=== PATIENT | male | born 1990 | race Two or more races ===

== ENCOUNTER 2024-10-12 12:16 | Inpatient (IN) | payer MEDICAID ==
[~2024-10-12] VITALS: Ht 172.7 cm; Wt 99.1 kg
[2024-10-12] MEDS ORDERED: NAD PO (12:24)
[2024-10-12] MEDS ORDERED: OMEG300C3 (12:24)
[2024-10-12 12:45] LABS: BASOPHILS % (AUTO) 0.4 % (0.0-2.0); EOSINOPHILS # (AUTO) 0.2 K/uL (0.0-0.7); EOSINOPHILS % (AUTO) 1.6 % (0.0-7.0); HEMATOCRIT 43.4 % (36.7-47.1); LYMPHOCYTES # (AUTO) 2.8 K/uL (0.8-4.8); MEAN CORPUSCULAR HEMOGLOBIN 19.5 uug (23.8-33.4); MEAN CORPUSCULAR HGB CONC 32 g/dL (32.5-36.3); MEAN CORPUSCULAR VOLUME 60.6 fL (73.0-96.2); MONOCYTES # (AUTO) 0.7 K/uL (0.1-1.30); MONOCYTES % (AUTO) 6.7 % (0.0-11.0); NEUTROPHILS # (AUTO) 6.7 K/uL (1.8-8.9); NEUTROPHILS % (AUTO) 64.3 % (38.5-71.5); PLATELET COUNT (AUTO) 230 K/uL (152-348); RED CELL DISTRIBUTION WIDTH 15.9 % (12.1-16.2); WHITE BLOOD COUNT (AUTO) 10.4 K/uL (3.6-10.2)
[2024-10-12 12:49] LABS: DIFFERENTIAL COMMENT 1; RED BLOOD CELL COUNT(AUTO) 7.15 MIL/uL (4.06-5.63)
[2024-10-12] MEDS: IV NORMAL SALINE 1000 ML BAG IV ONE (12:50)
[2024-10-12 12:58] LABS: ALBUMIN 3.8 g/dL (3.4-5.0); BILIRUBIN,DIRECT 0.2 mg/dL (0.0-0.2); BILIRUBIN,TOTAL 0.9 mg/dL (0.2-1.0); CALCIUM 9.6 mg/dL (8.5-10.1); CREATININE 0.9 mg/dL (0.6-1.3); POTASSIUM 4.3 mmol/L (3.5-5.1); TOTAL PROTEIN, SERUM 7.6 g/dL (6.4-8.2)
[2024-10-12 13:16] LABS: *BILIRUBIN,URIN NEGATIVE (NEGATIVE); *BLOOD, URINE NEGATIVE (NEGATIVE); *CLARITY,URINE CLEAR (CLEAR); *COLOR,URINE YELLOW (YELLOW); *KETONES,URINE NEGATIVE (NEGATIVE); *PROTEIN,URINE NEGATIVE (NEGATIVE); *UROBILINOGEN,URINE 0.2 E.U./dl (NORMAL); LEUKOCYTE ESTERASE ,URINE NEGATIVE (NEGATIVE); NITRITE, URINE NEGATIVE (NEGATIVE); UGLUCOSE NEGATIVE (NEGATIVE)
[2024-10-12] MEDS ORDERED: IOHEXOL 300MG/ML 100 ML INFUS..BTL ONE (13:29)
[2024-10-12] MEDS ORDERED: SWABABLE VALVE TRANSFER SET EA MC ONE (13:29)
[2024-10-12] MEDS ORDERED: IV NORMAL SALINE 250 ML IV ONE (13:29)
[2024-10-12] MEDS ORDERED: ONDANSETRON 4 MG/2 ML VIAL ONE (15:11)
[2024-10-12] MEDS ORDERED: MORPHINE SULFATE 4 MG/1 ML DISP.SYRIN ONE (15:12)
[2024-10-12] MEDS: ONDANSETRON 4 MG/2 ML VIAL IV ONE (15:21)
[2024-10-12] MEDS: MORPHINE SULFATE 4 MG/1 ML DISP.SYRIN IV ONE (15:21)
[2024-10-12] MEDS ORDERED: ONDANSETRON 4 MG/2 ML VIAL IV PRN (16:45)
[2024-10-12] MEDS ORDERED: ACETAMINOPHEN 325 MG TABLET PO PRN (16:45)
[2024-10-12] MEDS ORDERED: hydrALAZINE HCL 20 MG/1 ML VIAL IV PRN (16:45)
[2024-10-12] MEDS ORDERED: OMEG1CAP74 PO (17:57)
[2024-10-12] MEDS: IV NS 1000 ML 1,000 ML IV SCH (19:05)
[2024-10-12] MEDS: MORPHINE SULFATE 2 MG/1 ML DISP.SYRIN IVP PRN (19:29)
[2024-10-12 23:49] VITALS: BP 121/68; TEMP 98.3; O2SAT 96
[2024-10-13 06:54] VITALS: BP 121/88; TEMP 98.4; O2SAT 99
[2024-10-13 08:00] VITALS: BP 106/59; TEMP 97.9; O2SAT 98
[2024-10-13 08:44] LABS: BASOPHILS # (AUTO) 0.1 K/UL (0.0-0.2); BASOPHILS % (AUTO) 0.5 % (0.0-2.0); DIFFERENTIAL COMMENT 0; EOSINOPHILS # (AUTO) 0.2 K/uL (0.0-0.7); EOSINOPHILS % (AUTO) 1.4 % (0.0-7.0); HEMATOCRIT 38.5 % (36.7-47.1); HEMOGLOBIN 12.3 g/dL (12.5-16.3); LYMPHOCYTES # (AUTO) 2.5 K/uL (0.8-4.8); LYMPHOCYTES % (AUTO) 22.4 % (20.5-51.5); MEAN CORPUSCULAR HEMOGLOBIN 19.4 uug (23.8-33.4); MEAN CORPUSCULAR HGB CONC 32 g/dL (32.5-36.3); MEAN CORPUSCULAR VOLUME 60.4 fL (73.0-96.2); MONOCYTES # (AUTO) 0.8 K/uL (0.1-1.30); MONOCYTES % (AUTO) 7.4 % (0.0-11.0); NEUTROPHILS # (AUTO) 7.8 K/uL (1.8-8.9); NEUTROPHILS % (AUTO) 68.3 % (38.5-71.5); PLATELET COUNT (AUTO) 208 K/uL (152-348); RED BLOOD CELL COUNT(AUTO) 6.37 MIL/uL (4.06-5.63); WHITE BLOOD COUNT (AUTO) 11.4 K/uL (3.6-10.2)
[2024-10-13 08:49] LABS: EOSINOPHILS % (MANUAL) 1 % (0-8); HYPOCHROMASIA 2+; LYMPHOCYTES % (MANUAL) 22 % (20-40); MONOCYTES % (MANUAL) 7 % (2-10); NEUTROPHILS % (MANUAL) 68 % (42-75); PLATELET ESTIMATE ADEQUATE
[2024-10-13 08:50] LABS: ANISOCYTOSIS 1+
[2024-10-13 08:52] LABS: ALBUMIN 3.2 g/dL (3.4-5.0); CALCIUM 8.4 mg/dL (8.5-10.1); PHOSPHOROUS 3.8 mg/dL (2.5-4.9); POTASSIUM 4.3 mmol/L (3.5-5.1); TOTAL PROTEIN, SERUM 6.6 g/dL (6.4-8.2)
[2024-10-13] MEDS ORDERED: SUGAMMADEX SODIUM 200 MG/2 ML VIAL IV ONE (12:59)
[2024-10-13] MEDS ORDERED: PROPOFOL 200 MG/20 ML BOTTLE ONE (13:00)
[2024-10-13] MEDS ORDERED: ROCURONIUM BROMIDE 50 MG/5 ML VIAL ONE ×2 (13:00→13:54)
[2024-10-13] MEDS ORDERED: FENTANYL CITRATE 250 MCG/5 ML AMPUL ONE (13:00)
[2024-10-13] MEDS ORDERED: FAMOTIDINE. 20 MG/2 ML VIAL IV ONE (13:00)
[2024-10-13] MEDS ORDERED: ACETAMINOPHEN 500 MG TABLET PO PRN (13:00)
[2024-10-13] MEDS ORDERED: MIDAZOLAM HCL 2 MG/2 ML VIAL ONE (13:00)
[2024-10-13] MEDS ORDERED: BUPIVACAINE 0.25% 30 ML VIAL ONE (13:28)
[2024-10-13] MEDS ORDERED: SEVOFLURANE 250 ML BOTTLE ONE (13:38)
[2024-10-13] MEDS ORDERED: HYDROMORPHONE 1 MG/1 ML DISP.SYRIN IV PRN (14:45)
[2024-10-13] MEDS ORDERED: ONDANSETRON 4 MG/2 ML VIAL IV PRN (14:45)
[2024-10-13 15:45] VITALS: BP 102/62; TEMP 98.6; O2SAT 91
[2024-10-13 19:51] VITALS: BP 102/54; TEMP 97.7; O2SAT 95
[2024-10-14 04:43] VITALS: BP 104/51; TEMP 98.8; O2SAT 97
[2024-10-14] MEDS ORDERED: HYDR-3972 PO (09:43)
[2024-10-14 10:47] VITALS: BP 115/70; TEMP 98.6; O2SAT 94
== END 2024-10-14 11:14 | disposition home or self-care (01) | DRG 228 ==
LOC: ER 12:16 → MEDSURG1 17:43 → MEDSURG3 10-13 15:40
PROVIDERS: ADMIT Internal Medicine; ATTEND Internal Medicine
PROC: 0WQF0ZZ Repair Abdominal Wall, Open Approach (ICD-10-PCS; principal; 2024-10-13 13:00)
DX: K42.0 Umbilical hernia with obstruction, without gangrene (principal); D72.829 Elevated white blood cell count, unspecified; E66.9 Obesity, unspecified; Z68.33 Body mass index [BMI] 33.0-33.9, adult; Z88.0 Allergy status to penicillin; Z71.3 Dietary counseling and surveillance
CPT/HCPCS: 36415; 71045; 83690; 84100; 85025; 85610; 86850; 86900; 86901; A9150; G0378; J0690; J1100; J1308; J1885; J2250; J2270; J2405; J2765; J3010; J3490; J7040; Q9967